=== PATIENT | female | born 1935 | race Asian ===

== ENCOUNTER 2022-11-14 12:06 | Emergency (ER) | payer OTHER, MEDICAID ==
[~2022-11-14] VITALS: Ht 152.4 cm; Wt 45.4 kg
[2022-11-14 12:09] VITALS: BP 170/80
--- NOTE | 2022-11-14 12:09 | NUR ---
PT MOVED TO BED 11 BY [facility]
[2022-11-14] MEDS ORDERED: ONDANSETRON 4 MG/2 ML VIAL IVP ONE (12:30)
[2022-11-14 13:00] LABS: HEMATOCRIT 43.5 % (36-48); HEMOGLOBIN 14.7 g/dL (12.0-16.0); LYMPHOCYTES # (AUTO) 1.4 K/uL (2.5-16.5); LYMPHOCYTES % (AUTO) 10.1 % (20.5-51.1); MEAN CORPUSCULAR HEMOGLOBIN 33 pg (27-31); MEAN CORPUSCULAR HGB CONC 34 g/dL (33-37); MEAN CORPUSCULAR VOLUME 96.5 fL (80-94); MONOCYTES # (AUTO) 1.1 K/uL (0.8-1.0); MONOCYTES % (AUTO) 8.3 % (1.7-9.3); NEUTROPHILS # (AUTO) 11.1 K/uL (1.8-7.7); NEUTROPHILS % (AUTO) 81.6 % (42.2-75.2); PLATELET COUNT (AUTO) 163 K/uL (140-450); RED BLOOD CELL COUNT(AUTO) 4.51 MIL/uL (4.20-5.40); RED CELL DISTRIBUTION WIDTH 12.8 % (11.6-13.7); WHITE BLOOD COUNT (AUTO) 13.7 K/uL (4.8-10.8)
[2022-11-14 13:16] LABS: ALBUMIN 4.1 g/dL (3.4-5.0); ANION GAP 12.5 (8-16); ASPARTATE AMINOTRANSFERASE 46 U/L (15-37); CARBON DIOXIDE 28.6 mmol/L (21-32); CHLORIDE 93 mmol/L (98-107); CREATININE 1.1 mg/dL (0.6-1.3); GLUCOSE 190 mg/dL (74-106); LIPASE 34 U/L (73-393); POTASSIUM 4.1 mmol/L (3.5-5.1); SODIUM SERUM 130 mmol/L (136-145); TOTAL BILIRUBIN 1.1 mg/dL (0.0-1.0); UREA NITROGEN, BLOOD 41 mg/dL (7-18)
[2022-11-14 15:10] LABS: BILIRUBIN,URINE 2+ (NEGATIVE); BLOOD, URINE NEGATIVE (NEGATIVE); COLOR,URINE YELLOW (YELLOW); LEUKOCYTE ESTERASE ,URINE NEGATIVE (NEGATIVE); NITRITE, URINE POSITIVE (NEGATIVE); UGLUCOSE NEGATIVE (NEGATIVE)
[2022-11-14 15:18] LABS: APPEARANCE,URINE HAZY (CLEAR)
[2022-11-14 15:29] VITALS: BP 149/67
[2022-11-14] MEDS ORDERED: ONDA8TAB87 PO (15:41)
[2022-11-14] MEDS ORDERED: IBUP-2213 PO (15:41)
[2022-11-14] MEDS ORDERED: CIPR500T4 PO (15:41)
[2022-11-14] MEDS ORDERED: LOPE-289 PO (15:41)
[2022-11-14] MEDS ORDERED: LORazepam 2 MG/ML VIAL IVP ONE (16:45)
--- NOTE | 2022-11-14 16:55 | NUR ---
patient is very restless, trying to get out of bed multiple times. ativan given as ordered. V/S stable at this time. will continue to monitor.
--- NOTE | 2022-11-14 17:00 | NUR ---
Spoke with JIMBO Villalba at [facility]. Updated patient status and discharge back to [facility].
--- NOTE | 2022-11-14 18:03 | NUR ---
[facility] AT BEDSIDE
--- NOTE | 2022-11-14 18:12 | NUR ---
Patient discharged with v/s stable. Written and verbal after care instructions given and explained. Patient alert, oriented and verbalized understanding of instructions. Ambulance Transport with to custodial. All questions addressed prior to discharge. ID band removed. Patient advised to follow up with PMD. Rx of loperamide, ciprofloxacin, ibuprofen, zofran given. Patient educated on indication of medication including possible reaction and side effects.Report given to RN at [facility].
== END 2022-11-14 18:12 | disposition home or self-care (01) ==
LOC: MED 12:06
DX: N39.0 Urinary tract infection, site not specified (principal); R11.2 Nausea with vomiting, unspecified; R19.7 Diarrhea, unspecified; Z79.899 Other long term (current) drug therapy
CPT/HCPCS: 36415; 74176; 80053; 81003; 83690; 85025; 96374; 96375; 99285; J2060; J2405

== ENCOUNTER 2022-11-20 01:00 | Inpatient (IN) | payer OTHER, MEDICAID ==
[~2022-11-20] VITALS: Ht 149.9 cm; Wt 59.0 kg
[~2022-11-20 01:00] MED LIST: CIPR500T4 PO; IBUP-2213 PO; LOPE-289 PO; ONDA8TAB87 PO
[2022-11-20 01:22] VITALS: BP 122/74
--- NOTE | 2022-11-20 01:34 | NUR ---
PT ROMMEL MARTINEZ. TAKEN TO BED 11
[2022-11-20] MEDS ORDERED: NACL 0.9% 1,000 ML IV SCH (02:30)
[2022-11-20 03:25] LABS: BASOPHILS % (AUTO) 0.1 % (0.0-2.0); HEMATOCRIT 38.5 % (36-48); HEMOGLOBIN 12.9 g/dL (12.0-16.0); LYMPHOCYTES # (AUTO) 0.7 K/uL (2.5-16.5); LYMPHOCYTES % (AUTO) 4.4 % (20.5-51.1); MEAN CORPUSCULAR HEMOGLOBIN 32 pg (27-31); MEAN CORPUSCULAR HGB CONC 33 g/dL (33-37); MEAN CORPUSCULAR VOLUME 95.9 fL (80-94); NEUTROPHILS # (AUTO) 15.2 K/uL (1.8-7.7); NEUTROPHILS % (AUTO) 89.5 % (42.2-75.2); PLATELET COUNT (AUTO) 148 K/uL (140-450); RED BLOOD CELL COUNT(AUTO) 4.02 MIL/uL (4.20-5.40); RED CELL DISTRIBUTION WIDTH 12.8 % (11.6-13.7)
[2022-11-20] MEDS ORDERED: KETOROLAC 15 MG/ML VIAL IVP ONE (03:35)
[2022-11-20] MEDS ORDERED: diphenhydrAMINE 50 MG/ML VIAL IVP ONE (03:35)
[2022-11-20] MEDS ORDERED: PIPERACILLIN/TAZOBACTAM 3.375 GM in DEXTROSE 5% 50 ML IV ONE (03:35)
--- NOTE | 2022-11-20 03:35 | NUR ---
Ultrasound at bedside.
--- NOTE | 2022-11-20 03:38 | NUR ---
PT TAKEN TO CT
--- NOTE | 2022-11-20 03:43 | NUR ---
OFF THE FLOOR FOR CT -SCAN
[2022-11-20 03:45] LABS: ALBUMIN 2.8 g/dL (3.4-5.0); ANION GAP 15.8 (8-16); ASPARTATE AMINOTRANSFERASE 101 U/L (15-37); CARBON DIOXIDE 25.1 mmol/L (21-32); CHLORIDE 96 mmol/L (98-107); CREATININE 1.9 mg/dL (0.6-1.3); GLUCOSE 219 mg/dL (74-106); POTASSIUM 3.9 mmol/L (3.5-5.1); SODIUM SERUM 133 mmol/L (136-145); TOTAL BILIRUBIN 0.7 mg/dL (0.0-1.0); UREA NITROGEN, BLOOD 54 mg/dL (7-18)
--- NOTE | 2022-11-20 03:48 | NUR ---
PT RETURN FROM CT
[2022-11-20] MEDS ORDERED: NACL 0.9% 1,000 ML IV ONE (04:20)
[2022-11-20] MEDS ORDERED: PIPERACILLIN/TAZOBACTAM 3.375 GM VIAL IV ONE (05:15)
[2022-11-20] MEDS ORDERED: ONDANSETRON 4 MG/2 ML VIAL IVP ONE (05:55)
[2022-11-20] MEDS ORDERED: MORPHINE SULFATE 2 MG/ML SYR IVP ONE (05:55)
--- NOTE | 2022-11-20 06:55 | NUR ---
THREE KAMILLA BATES INSERTED FOLLOWING STERILE TECHNIQUE,PATIENT TOLERATED PROCEDURE WELL. BATES PATENT DRAINING TO GRAVITY
--- NOTE | 2022-11-20 08:10 | NUR ---
RESTING IN BED, ASLEEP, AROUSABLE, NO S/S OF PAIN OR DISCOMFORT, NO DISTRESS. [address] WAY BATES DRAINING TO BEDSIDE BAG, ON GOING BLADDER CONTINUOUS .DRAINS TO DARK PINK
--- NOTE | 2022-11-20 09:00 | NUR ---
Patient will be admitted to care of DR RAMIREZ. Admited to TELETELE. Will go to room 125A. Belongings list completed. Report to ZAINA CHOI.
--- NOTE | 2022-11-20 09:30 | NUR ---
Admitted patient from ED. kyrgyz speaking. alert and oriented x 1, confused, not in any form of distress, patient has camargo catheter in place to continous bladder irrigation with pink colored urine, initial assessment done and documented, plan of care discussed..
[2022-11-20] MEDS ORDERED: LOPERAMIDE 2 MG CAP PO PRN (10:15)
[2022-11-20] MEDS ORDERED: IBUPROFEN 600 MG TAB PO PRN (10:15)
[2022-11-20] MEDS ORDERED: MAG SULF 2000 MG/WATER PREMIX 50 ML IV PRN (10:20)
[2022-11-20] MEDS ORDERED: ACETAMINOPHEN 325 MG TAB PO PRN (10:20)
[2022-11-20] MEDS: NACL 0.9% 1,000 ML IV SCH (10:20)
[2022-11-20] MEDS ORDERED: POTASSIUM CHLORIDE 10 MEQ TABER PO PRN (10:20)
[2022-11-20] MEDS ORDERED: ONDANSETRON 4 MG/2 ML VIAL IVP PRN (10:20)
[2022-11-20 12:08] LABS: BASOPHILS % (AUTO) 0.2 % (0.0-2.0); HEMATOCRIT 34.9 % (36-48); HEMOGLOBIN 11.6 g/dL (12.0-16.0); LYMPHOCYTES # (AUTO) 0.9 K/uL (2.5-16.5); LYMPHOCYTES % (AUTO) 4.4 % (20.5-51.1); MEAN CORPUSCULAR HEMOGLOBIN 32 pg (27-31); MEAN CORPUSCULAR HGB CONC 33 g/dL (33-37); MEAN CORPUSCULAR VOLUME 95.8 fL (80-94); MONOCYTES # (AUTO) 0.9 K/uL (0.8-1.0); MONOCYTES % (AUTO) 4.7 % (1.7-9.3); NEUTROPHILS # (AUTO) 18.2 K/uL (1.8-7.7); NEUTROPHILS % (AUTO) 90.7 % (42.2-75.2); PLATELET COUNT (AUTO) 78 K/uL (140-450); RED BLOOD CELL COUNT(AUTO) 3.64 MIL/uL (4.20-5.40); RED CELL DISTRIBUTION WIDTH 12.8 % (11.6-13.7); WHITE BLOOD COUNT (AUTO) 20.1 K/uL (4.8-10.8)
[2022-11-20 12:25] LABS: PROTHROMBIN TIME 11.1 secs (10.8-13.4)
[2022-11-20 12:29] LABS: ANION GAP 12.2 (8-16); CARBON DIOXIDE 25.9 mmol/L (21-32); CHLORIDE 103 mmol/L (98-107); CREATININE 1.3 mg/dL (0.6-1.3); GLUCOSE 163 mg/dL (74-106); POTASSIUM 4.1 mmol/L (3.5-5.1); SODIUM SERUM 137 mmol/L (136-145); UREA NITROGEN, BLOOD 43 mg/dL (7-18)
[2022-11-20 12:44] LABS: AMYLASE 113 U/L (25-115); CHOL/HDL RATIO 1.9 (1-4.5); FREE T4 (FREE THYROXINE) 1.03 ng/dL (0.76-1.46); HDL CHOLESTEROL 46 mg/dL (40-60); LDL (CALC) 21 mg/dL (60-100); LIPASE 84 U/L (73-393); THYROID STIMULATING HORMONE 4.96 uIU/mL (0.34-3.74); TRIGLYCERIDES 100 mg/dL (30-150)
[2022-11-20 16:00] VITALS: BP 128/72
--- NOTE | 2022-11-20 19:32 | NUR ---
RECEIVED REPORT FROM DAY SHIFT NURSE FOR CONTINUITY OF CARE. PT IS AWAKE, ALERT AND ORIENTED X1, URDU SPEAKING. ON ROOM AIR WITH NO APPARENT SIGNS OF ACUTE DISTRESS NOTED. OVERALL SKIN IS INTACT, PT HAS IV SITE AT LEFT FOREARM 22 GAUGE, INTACT AND PATENT. BATES IN PLACE RUNNING CONTINOUS IRRIGATION. WILL MAKE FREQUENT ROUNDS THROUGHOUT SHIFT.
[2022-11-20 20:00] VITALS: BP 123/73
[2022-11-20] MEDS: DOCUSATE SODIUM 100 MG GELCAP PO SCH (20:40)
[2022-11-20] MEDS: HYDROcodone/APAP 7.5/325 MG 1 TAB PO PRN (22:04)
--- NOTE | 2022-11-20 22:04 | NUR ---
PT REPORTING ABDOMINAL PAIN ON A SCALE OF 6/10, STATING SHE REALLY HAS TO USE THE RESTROOM. EDUCATED PT ON USE OF BATES CATHETER, FURTHER TEACHING NECESSARY. GAS APPLIANCE MECHANIC WAS USED TO GATHER THIS INFORMATION. NORCO GIVEN PRN FOR PAIN LEVEL 6/10. WILL CONTINUE TO MONITOR.
[2022-11-21] VITALS: BP 115/57
--- NOTE | 2022-11-21 02:25 | NUR ---
PT ASLEEP IN BED WITH NO APPARENT SIGNS OF DISTRESS NOTED. EMPTIED BATES, 950 ML'S DRAINED. WILL CONTINUE TO MONITOR.
[2022-11-21 04:27] VITALS: BP 124/62
[2022-11-21 06:06] LABS: BASOPHILS % (AUTO) 0.1 % (0.0-2.0); HEMATOCRIT 33.1 % (36-48); LYMPHOCYTES # (AUTO) 1.5 K/uL (2.5-16.5); LYMPHOCYTES % (AUTO) 8.2 % (20.5-51.1); MEAN CORPUSCULAR HEMOGLOBIN 32 pg (27-31); MEAN CORPUSCULAR HGB CONC 33 g/dL (33-37); MONOCYTES # (AUTO) 1.3 K/uL (0.8-1.0); MONOCYTES % (AUTO) 6.8 % (1.7-9.3); NEUTROPHILS # (AUTO) 15.6 K/uL (1.8-7.7); NEUTROPHILS % (AUTO) 84.9 % (42.2-75.2); PLATELET COUNT (AUTO) 137 K/uL (140-450); RED BLOOD CELL COUNT(AUTO) 3.41 MIL/uL (4.20-5.40); RED CELL DISTRIBUTION WIDTH 13.2 % (11.6-13.7); WHITE BLOOD COUNT (AUTO) 18.4 K/uL (4.8-10.8)
[2022-11-21] MEDS: NACL 0.9% 1,000 ML IV SCH ×2 (06:20→11:48)
[2022-11-21 06:24] LABS: ANION GAP 13.7 (8-16); CARBON DIOXIDE 23.1 mmol/L (21-32); CHLORIDE 104 mmol/L (98-107); CREATININE 0.7 mg/dL (0.6-1.3); GLUCOSE 113 mg/dL (74-106); POTASSIUM 3.8 mmol/L (3.5-5.1); SODIUM SERUM 137 mmol/L (136-145); UREA NITROGEN, BLOOD 31 mg/dL (7-18)
[2022-11-21 06:32] LABS: MAGNESIUM 2.3 mg/dL (1.8-2.4); PHOSPHORUS 2.1 mg/dL (2.5-4.9)
--- NOTE | 2022-11-21 07:05 | NUR ---
ASSUMED CONTINUITY OF CARE. INITIAL ASSESSMENT DONE. KEEP COMFORTABLE ON BED. CONTINUOS FC IRRIGATION IRRIGATING WELL. FALL PRECAUTION APPLIED. CALL LIGHT WITHIN REACH.
--- NOTE | 2022-11-21 07:21 | NUR ---
PT SLEPT WELL THROUGHOUT THE NIGHT. PT DID REMOVE IV. NEW IV WAS STARTED AT LEFT FOREARM 24 GAUGE, INTACT AND PATENT. WILL ENDORSE TO DAY SHIFT NURSE FOR CONTINUITY OF CARE.
[2022-11-21 08:00] VITALS: BP 127/57
--- NOTE | 2022-11-21 08:44 | NUR ---
PATIENT HAS BEEN SCREENED AND CATEGORIZED MODERATE NUTRITION RISK. PATIENT WILL BE SEEN WITHIN 3-5 DAYS OF ADMISSION. REVIEWED BY YIMI TORRES RD
--- NOTE | 2022-11-21 09:07 | NUR ---
STARTED NEW BAG OF NS [address] CONTINUOS IRRIGATION. TOLERATED WELL.
[2022-11-21] MEDS: DOCUSATE SODIUM 100 MG GELCAP PO SCH ×2 (09:11→20:37)
[2022-11-21] MEDS: PANTOPRAZOLE 40 MG INJ VIAL IVP SCH (09:24)
--- NOTE | 2022-11-21 09:45 | NUR ---
EMPTIED FC WITH 1000 ML PINK/HERNANDEZ URINE OUTPUT. CONTINUE TO MONITOR PT. AND FC IRRIGATION.
[2022-11-21 12:00] VITALS: BP 108/55
--- NOTE | 2022-11-21 12:00 | NUR ---
EMPTIED FC WITH 800 ML PINK/HERNANDEZ URINE OUTPUT. CONTINUE MONITORING.
[2022-11-21] MEDS: HYDROcodone/APAP 7.5/325 MG 1 TAB PO PRN (14:46)
[2022-11-21 16:00] VITALS: BP 120/56
--- NOTE | 2022-11-21 16:10 | NUR ---
STARTED A NEW BAG OF NS [address] CONTINUOS IRRIGATION. EMPTIED 900 ML PINK/HERNANDEZ URINE OUTPUT FROM BATES CATHETER.
--- NOTE | 2022-11-21 18:45 | NUR ---
EMPTIED FC WITH 700 ML PINK/HERNANDEZ URINE OUTPUT. WILL ENDORSE TO CABLE MAINTAINER NURSE TO PUT IN THEIR I & O DOCUMENTATION.
--- NOTE | 2022-11-21 19:15 | NUR ---
BEDSIDE REPORT GIVEN TO MODESTO ARBOLEDA. IN STABLE CONDITION. 3 WAY FC CONTINOUS IRRIGATION RUNNING WELL.
--- NOTE | 2022-11-21 19:27 | NUR ---
RECEIVED REPORT FROM DAY SHIFT NURSE FOR CONTINUITY OF CARE. PT IS AWAKE, ALERT AND ORIENTED X1, TURKMEN SPEAKING. ON ROOM AIR WITH NO APPARENT SIGNS OF ACUTE DISTRESS NOTED. OVERALL SKIN IS INTACT, PT HAS IV SITE AT LEFT FOREARM 24 GAUGE, INTACT AND PATENT. [address] B[address] RUNNING CONTINOUS IRRIGATION. WILL MAKE FREQUENT ROUNDS THROUGHOUT SHIFT.
[2022-11-21 20:00] VITALS: BP 126/59
--- NOTE | 2022-11-21 21:30 | NUR ---
SCHEDULED MEDICATIONS ADMINISTERED WITH NO COMPLICATIONS. DO DISTRESS NOTED AT THIS TIME, WILL CONTINUE TO MONITOR.
[2022-11-22] VITALS: BP 136/58
--- NOTE | 2022-11-22 | NUR ---
EMPTIED 2100ML FROM [address] FC. PT ASLEEP IN BED WITH NO SIGNS OF DISTRESS. WILL CONTINUE MONITORING.
[2022-11-22 04:00] VITALS: BP 137/64
[2022-11-22] MEDS: HYDROcodone/APAP 7.5/325 MG 1 TAB PO PRN (05:01)
--- NOTE | 2022-11-22 05:07 | NUR ---
EMPTIED 2L FROM BATES CATHETER. URINE COLOR DARK HERNANDEZ RED. WILL CONTINUE MONITORING.
[2022-11-22 06:20] LABS: HEMATOCRIT 31.7 % (36-48); HEMOGLOBIN 10.5 g/dL (12.0-16.0); MEAN CORPUSCULAR HEMOGLOBIN 32 pg (27-31); MEAN CORPUSCULAR HGB CONC 33 g/dL (33-37); MEAN CORPUSCULAR VOLUME 96.8 fL (80-94); PLATELET COUNT (AUTO) 156 K/uL (140-450); RED BLOOD CELL COUNT(AUTO) 3.27 MIL/uL (4.20-5.40); RED CELL DISTRIBUTION WIDTH 13.2 % (11.6-13.7); WHITE BLOOD COUNT (AUTO) 15.3 K/uL (4.8-10.8)
[2022-11-22 06:37] LABS: LYMPHOCYTES % (MANUAL) 9 % (20-46); MONOCYTES % (MANUAL) 6 % (5-12); PROMYELOCYTES % 1 % (0-0)
[2022-11-22 06:46] LABS: CARBON DIOXIDE 23.3 mmol/L (21-32); CHLORIDE 104 mmol/L (98-107); CREATININE 0.6 mg/dL (0.6-1.3); GLUCOSE 91 mg/dL (74-106); POTASSIUM 3.3 mmol/L (3.5-5.1); SODIUM SERUM 139 mmol/L (136-145); UREA NITROGEN, BLOOD 16 mg/dL (7-18)
[2022-11-22 06:52] LABS: MAGNESIUM 2.1 mg/dL (1.8-2.4); PHOSPHORUS 1.3 mg/dL (2.5-4.9)
--- NOTE | 2022-11-22 07:40 | NUR ---
RECIEVED PATIENT ENDORSEMENT FROM PM NURSE. PATIENT SEEN SLEEPING. ASSESSMENT PERFORMED FOR CONTINUITY OF CARE.
--- NOTE | 2022-11-22 07:47 | NUR ---
ENDORSED TO DAY SHIFT NURSE FOR CONTINUITY OF CARE. PT IS STABLE AT THIS TIME.
[2022-11-22 08:00] VITALS: BP 122/60
[2022-11-22] MEDS: DOCUSATE SODIUM 100 MG GELCAP PO SCH ×2 (08:48→20:32)
[2022-11-22] MEDS: PANTOPRAZOLE 40 MG INJ VIAL IVP SCH (08:58)
--- NOTE | 2022-11-22 10:30 | NUR ---
SCREEN FOR LOW DIOR SCALE AT RISK, CONTINUE TO FOLLOW PRESSURE ULCER PREVENTION INTERVENTIONS. -TURN AND REPOSITION PATIENT Q 2H, ASSIST IF NEEDED -ASSESS AND MONITOR SKIN CONDITION DURING POSITION CHANGES -OFFLOAD BILATERAL HEELS BY PLACING PILLOWS UNDER CALVES AT ALL TIMES, UNLESS OTHERWISE CONTRAINDICATED -PRESSURE REDISTRIBUTION BY PLACING PILLOWS AND OFFLOADING SACRALCOCCYX -KEEP SKIN CLEAN AND DRY AT ALL TIMES.
[2022-11-22 12:00] VITALS: BP 146/87
--- NOTE | 2022-11-22 12:43 | NUR ---
P.T. NOTES P.T. EVAL COMPLETED; REFER TO EVAL FOR DETAILS.
[2022-11-22] MEDS ORDERED: ALPRAZolam 0.5 MG TAB PO PRN (15:45)
[2022-11-22 16:00] VITALS: BP 110/60
--- NOTE | 2022-11-22 19:20 | NUR ---
ENDORSED STABLE PATIENT TO PM NURSE FOR CONTINUITY OF CARE.
--- NOTE | 2022-11-22 19:30 | NUR ---
RECEIVED BEDSIDE REPORT FROM DAY SHIFT RN FOR CONTINUITY OF CARE. PT IS RESTING IN BED NOT IN ANY DISTRESS. PT HAS FC DRAINING TO GRAVITY. MOLINA IN COLOR. PT HAS IRRIGATION SYSTEM IN PLACE. BED ALARM ON. SAFETY MEASURES TAKEN. WILL CONTINUE TO MONITOR THE PT.
[2022-11-22 20:00] VITALS: BP 140/59
--- NOTE | 2022-11-22 22:10 | NUR ---
PT IV BECAME INFILTRATED. NEW IV INSERTED ON LEFT WRIST 22 GAUGE.
[2022-11-22] MEDS: NACL 0.9% 1,000 ML IV SCH (22:20)
[2022-11-23] VITALS: BP 104/51
--- NOTE | 2022-11-23 03:05 | NUR ---
PT HAS BEEN RESTLESS ALL NIGHT. PT KEPT ON PULLING EVERYTHING OFF TUBINGS AND GOWN. XANAX WAS GIVEN EARLIER ON SHIFT AND DID NOT WORK ON PT. NOTIFIED [employer]OL OPERATIONS MANAGER DR. LYLES FOR ANY NEW ORDERS. REPLIED TO REDIRECT PT.
[2022-11-23 04:00] VITALS: BP 110/50
--- NOTE | 2022-11-23 07:10 | NUR ---
RECEIVED PATIENT ENDORSEMENT FROM PM NURSE. PATIENT SEEN SLEEPING. ASSESSMENT PERFORMED FOR CONTINUITY OF CARE.
--- NOTE | 2022-11-23 07:11 | NUR ---
ENDORSED PT TO DAY SHIFT RN FOR CONTINUITY OF CARE. PT IS STABLE.
[2022-11-23 08:00] VITALS: BP 116/70
[2022-11-23 08:39] LABS: BASOPHILS % (AUTO) 0.1 % (0.0-2.0); EOSINOPHILS % (AUTO) 0.1 % (0.0-4.0); HEMATOCRIT 31.8 % (36-48); HEMOGLOBIN 10.7 g/dL (12.0-16.0); LYMPHOCYTES # (AUTO) 1.2 K/uL (2.5-16.5); LYMPHOCYTES % (AUTO) 11.3 % (20.5-51.1); MEAN CORPUSCULAR HEMOGLOBIN 33 pg (27-31); MEAN CORPUSCULAR HGB CONC 34 g/dL (33-37); MEAN CORPUSCULAR VOLUME 96.6 fL (80-94); MONOCYTES # (AUTO) 0.7 K/uL (0.8-1.0); MONOCYTES % (AUTO) 6.9 % (1.7-9.3); NEUTROPHILS # (AUTO) 8.7 K/uL (1.8-7.7); NEUTROPHILS % (AUTO) 81.6 % (42.2-75.2); PLATELET COUNT (AUTO) 186 K/uL (140-450); RED BLOOD CELL COUNT(AUTO) 3.29 MIL/uL (4.20-5.40); RED CELL DISTRIBUTION WIDTH 12.9 % (11.6-13.7); WHITE BLOOD COUNT (AUTO) 10.7 K/uL (4.8-10.8)
[2022-11-23] MEDS: DOCUSATE SODIUM 100 MG GELCAP PO SCH (09:00)
[2022-11-23] MEDS: PANTOPRAZOLE 40 MG INJ VIAL IVP SCH (09:00)
[2022-11-23 09:06] LABS: ANION GAP 13.6 (8-16); CARBON DIOXIDE 25.4 mmol/L (21-32); CHLORIDE 104 mmol/L (98-107); CREATININE 0.7 mg/dL (0.6-1.3); GLUCOSE 92 mg/dL (74-106); PHOSPHORUS 1.3 mg/dL (2.5-4.9); SODIUM SERUM 139 mmol/L (136-145); UREA NITROGEN, BLOOD 13 mg/dL (7-18)
[2022-11-23] MEDS ORDERED: IV Rocephin IV (11:31)
[2022-11-23 12:16] LABS: BILIRUBIN,URINE 1+ (NEGATIVE); BLOOD, URINE 3+ (NEGATIVE); LEUKOCYTE ESTERASE ,URINE 2+ (NEGATIVE); NITRITE, URINE NEGATIVE (NEGATIVE); UGLUCOSE NEGATIVE (NEGATIVE)
[2022-11-23 12:23] LABS: APPEARANCE,URINE CLOUDY (CLEAR); COLOR,URINE AMBER (YELLOW)
[2022-11-23 12:30] LABS: BARBITURATE, URINE NEGATIVE ng/ml (NEG <=200); BENZODIAZEPINE, URINE POSITIVE ng/mL (NEG <=200); CANNABINOID, URINE POSITIVE ng/mL (NEG <=50); COCAINE, URINE NEGATIVE ng/mL (NEG <=300); OPIATE, URINE POSITIVE ng/mL (NEG <=2000); PHENCYCLIDINE SCREEN,URINE NEGATIVE ng/mL (NEG <=25)
[2022-11-23 12:33] LABS: RBC,URINE 50-80 /HPF (0-5); WBC,URINE 20-60 /HPF (0-5)
--- NOTE | 2022-11-23 12:51 | NUR ---
DISCHARGE ORDER RECEIVED FOR PATIENT TO RETURN TO [facility] AND CONTINUE [place] X 3 DAYS. CLINICAL PACKET FAXED TO [facility], PATIENT ASSIGNED ROOM 110A, DR ARNOLD TO FOLLOW PER BRITTANI, NURSING CHANNEL OPENER OUTSOLES. PATIENT WILL BE PICKED UP BETWEEN 1430 AND 1530 BY [facility] ([phone]) VIA [facility].
--- NOTE | 2022-11-23 14:00 | NUR ---
PATIENT PICKED UP BY TRANSPORT. COORDINATION WITH [facility] ESTABLISHED. ORDERS AND ROUTINE PROCEDURES ENDORSED. PATIENT TRANSPORTED, STABLE AND ON GURNEY.
[2022-11-23 14:14] VITALS: BP 116/70
== END 2022-11-23 14:45 | DRG 689 ==
LOC: MED 01:00 → MTU 07:09 → MMU 08:29 → MTU 11-21 01:10
DX: N13.6 Pyonephrosis (principal); E43 Unspecified severe protein-calorie malnutrition; N30.81 Other cystitis with hematuria; K44.9 Diaphragmatic hernia without obstruction or gangrene; E78.00 Pure hypercholesterolemia, unspecified; F32.A Depression, unspecified; E78.5 Hyperlipidemia, unspecified; F03.90 Unspecified dementia, unspecified severity, without behavioral disturbance, psychotic disturbance, mood disturbance, and anxiety; K74.60 Unspecified cirrhosis of liver; K20.90 Esophagitis, unspecified without bleeding; Z20.822 Contact with and (suspected) exposure to COVID-19; Z79.1 Long term (current) use of non-steroidal anti-inflammatories (NSAID); Z79.899 Other long term (current) drug therapy; Z68.26 Body mass index [BMI] 26.0-26.9, adult
CPT/HCPCS: 36415; 51702; 71045; 76856; 80048; 80053; 80305; 81001; 82140; 82150; 83036; 83605; 83690; 83735; 83880; 84100; 84439; 84443; 84484; 85025; 85610; 85730; 87040; 87070; 87081; 87086; 87110; 87186; 87205; 87299; 87491; 93005; 96374; 96375; 97112; 97116; 99285; C9113; J0696; J1200; J1885; J2543; J7060; Q0092